=== PATIENT | female | born 1960 | race Caucasian/White ===

== ENCOUNTER 2016-10-11 09:07 | Emergency (ER) | payer MEDICAID, OTHER ==
[~2016-10-11] VITALS: Ht 157.5 cm; Wt 78.8 kg
[2016-10-11 09:16] VITALS: Ht 157.5 cm; Wt 78.8 kg
[2016-10-11] MEDS ORDERED: HYDR-906 PO (11:14)
[2016-10-11] MEDS ORDERED: KETOROLAC 30 MG INJ IM STA (11:15)
--- NOTE | 2016-10-11 11:28 | ERD ---
ER Documentation Chief Complaint Date/Time DATE: 10/11/16 TIME: 11:24 Chief Complaint back pain x 3 days, bart knee pain hx ARTHERITIS HPI This is a 56-year-old female with a history of chronic back pain and arthritis in her knees presenting to the emergency room complaining of acute on chronic back and knee pain for the past 3 days. He rates it moderate in severity and it has not worsened from previous exacerbation. Patient states that she usually takes [place] however her Medi-Niko will not be active until next month therefore she was not able to follow-up with the doctor. Patient denies any saddle anesthesia, bladder or bowel incontinence. Denies any fevers. She denies taking any medications for this today ROS All systems reviewed and are negative except as per history of present illness. Medications Home Meds Active Scripts Hydrocodone/Acetaminophen ([place] 5-325 Tablet) 1 Each Tablet, 1 TAB PO Q6H Y for PAIN, #20 TAB Prov:GABRIELA ESPINOSA PA-C 10/11/16 Allergies Allergies: Coded Allergies: No Known Allergy (Unverified , 10/11/16) PMhx/Soc Medical and Surgical Hx: pt denies Medical Hx, pt denies Surgical Hx Hx Alcohol Use: No Hx Substance Use: No Hx Tobacco Use: Yes (5cig/day) Smoking Status: Current every day smoker Physical Exam Vitals Vital Signs Date Time Temp Pulse Resp B/P Pulse Ox O2 Delivery O2 Flow Rate FiO2 10/11/16 09:16 97.4 78 18 140/78 99 Physical Exam GENERAL: WD/WN, in no apparent distress, non-toxic appearing HENT: NC/AT EYES: Conjunctiva normal NECK: Supple PULM: Normal labored breathing CV: Good capillary refill GI: Non-distended, no guarding BACK: no deformities noted, normal spinal curvature, TTP on lumbar region, non- tender on spine midline, EXT: No clubbing, cyanosis, or edema, tender to palpate in the knees, performed NEURO: Moves on all fours, sensation intact, normal gait SKIN: intact PSYCH: Normal mood Results 24 hrs Current Medications Medications (Trade) Dose Ordered Sig/Celestina Route PRN Reason Start Time Stop Time Status Last Admin Dose Admin Ketorolac Tromethamine (Toradol) 30 mg ONCE STAT IM 10/11/16 11:15 10/11/16 11:16 DC Procedures/MDM This is a 56-year-old female with a history of chronic back pain and arthritis in her knees presenting to the emergency room complaining of acute on chronic back and knee pain for the past 3 days. Patient states that she usually takes [place] however her Medi-Niko will not be active until next month therefore she was not able to follow-up with the doctor. low suspicion for spinal abscess, vertebral fracture, cauda equina syndrome, spinal stenosis due to physical examination. Patient is neurovascularly intact. Prescription [place] #20 was given to patient, I discussed with her that I am unable to give her any more and she has to follow -up with her regular doctor to get a prescription for [place] from now on. Cures report has been pulled and patient received 18 tablets of Percocet 1 month ago. discussed to return to the ED if not improving as expected or follow-up with a primary care physician. Patient understood and agreed with this plan. Departure Diagnosis: Primary Impression: Chronic back pain Condition: Stable Patient Instructions: Self-Care for Low Back Pain, Back Pain (Acute Or Chronic) Additional Instructions: FOLLOW UP WITH YOUR PRIMARY CARE PHYSICIAN TOMORROW.Return to this facility if you are not improving as expected. Take all medicines as directed. Return to this facility if you are not improving as expected. You have been given a medicine which may cause drowsiness.DO NOT DRIVE OR OPERATE DANGEROUS MACHINERY while taking this medicine! GABRIELA ESPINOSA PA-C Oct 11, 2016 11:28
[2016-10-11 12:00] VITALS: BP 132/84; PULSE 77; RESP 18; TEMP 98
== END 2016-10-11 12:00 | disposition home or self-care (01) ==
LOC: FTE 09:07
DX: M54.5 Low back pain (principal); F17.210 Nicotine dependence, cigarettes, uncomplicated
CPT/HCPCS: 96372; J1885